=== PATIENT | female | born 1935 | race Caucasian/White ===

== ENCOUNTER 2017-02-01 14:55 | Outpatient (POV) | payer MEDICARE, SELFPAY | END 2017-02-01 17:19 | disposition home or self-care (01) | PROVIDERS: Visit Provider Podiatrist | DX: E11.8 Type 2 diabetes mellitus with unspecified complications (principal); N18.9 Chronic kidney disease, unspecified; L60.1 Onycholysis | CPT/HCPCS: 99212; G0127 ==

== ENCOUNTER → 2017-04-09 10:36 | Outpatient (POV) | payer MEDICARE, SELFPAY | PROVIDERS: Visit Provider Podiatrist | DX: Z00.00 Encounter for general adult medical examination without abnormal findings (principal) ==

== ENCOUNTER → 2017-07-02 08:51 | Outpatient (CLI) | payer MEDICARE, MEDICAID, SELFPAY ==
--- NOTE | 2017-07-02 08:52 | FL_ITS ---
EXAM: Barium swallow/esophagram. INDICATION: Dysphasia ITS.REASON: swallowing difficulty ORDERING PHYSICIAN: Chris House MD PATIENT AGE: 81 years TECHNIQUE: In the upright position the patient was observed to swallow barium in both the AP and lateral view. The cervical esophagus was examined under fluoroscopy with images obtained. The patient was then placed prone in the right anterior oblique position and was observed to swallow barium with Valsalva technique . FLUOROSCOPY TIME: 1 minute FINDINGS: Surgical clips are present in the left neck. The cervical esophagus is midline. There is persistent spasm of the cricopharyngeus muscle. There is a small sliding hiatal hernia with mild spasm of the distal esophagus which did not persist during the exam. There are degenerative changes in the cervical spine. IMPRESSION: 1. Persistent spasm of the cricopharyngeus muscle. 2. Small sliding hiatal
== END ==
PROVIDERS: Family Provider Internal Medicine; PCP Internal Medicine; Visit Provider Otolaryngology
DX: R13.10 Dysphagia, unspecified (principal)
CPT/HCPCS: 74220

== ENCOUNTER → 2017-12-13 13:02 | Outpatient (POV) | payer MEDICARE, MEDICAID, SELFPAY | PROVIDERS: Visit Provider Nurse Practitioner Acute Care | DX: Z00.00 Encounter for general adult medical examination without abnormal findings (principal) ==

== ENCOUNTER → 2017-12-20 15:11 | Outpatient (CLI) | payer MEDICARE, MEDICAID, SELFPAY ==
--- NOTE | 2017-12-20 15:23 | XR_ITS ---
XR chest 2V HISTORY: +PPD ITS.REASON: + PPD ORDERING PHYSICIAN: Ana Rosa Santana PATIENT AGE: 82 years COMPARISON: 07/14/2017 FINDINGS: There is myocardial megaly without failure. No lobar consolidation or collapse is evident. There is a rounded density in the infrahilar region on the right at 2.5 cm and may be due to summation density of the overlying vessels as there is some mild patient rotation. Calcified lymph node is also a consideration. Coronary artery calcifications are present. No cavitating lesions are apparent. No radiographic evidence of active granulomatous process. There is mild kyphosis of the thoracic spine. IMPRESSION: No acute finding.
== END ==
PROVIDERS: PCP Internal Medicine; Visit Provider Physician Assistant Medical
DX: Z11.1 Encounter for screening for respiratory tuberculosis (principal)
CPT/HCPCS: 71046

== ENCOUNTER → 2018-06-28 10:03 | Outpatient (CLI) | payer MEDICARE, MEDICAID, SELFPAY ==
[2018-06-28 10:39] LABS: Alanine Aminotransferase 21 U/L (12-78); Albumin Level 3.2 gm/dL (3.4-5.0); Alkaline Phosphatase 96 U/L (46-116); Amylase 42 U/L (25-115); Anion Gap 10.9 mEq/L (5-15); Aspartate Amino Transferase 12 U/L (15-37); Bilirubin,Total 0.3 mg/dL (0.2-1.0); Blood Urea Nitrogen 38 mg/dL (7-18); Calcium 9.7 mg/dL (8.5-10.1); Carbon Dioxide 35 mmol/L (21.0-32.0); Chloride 100 mmol/L (98-107); Estimated Glomerular Filt Rate 6 ml/min (>60); GFR (African American) 7 ML/MIN (>60); Globulin 3.2 gm/dl (1.3-3.2); Glucose 185 mg/dL (74-106); Potassium 3.9 mmoL/L (3.5-5.1); Sodium 142 mmol/L (136-145); Total Protein,Serum 6.4 gm/dL (6.4-8.2)
[2018-06-28 10:41] LABS: Basophils % 0.3 % (0.1-2.0); Eosinophils # 0.1 K/mm3 (0.0-0.4); Eosinophils % 1.6 % (0.1-12.0); Hematocrit 32.6 % (37.0-47.0); Hemoglobin 10.2 g/dL (12.2-16.2); Lymphocytes # 0.6 K/mm3 (0.7-4.5); Lymphocytes % 8.8 % (10-50); Mean Corpuscular HGB Conc 31.3 g/dL (31.8-35.4); Mean Corpuscular Volume 92.7 fl (81-99); Mean Platelet Volume 7.6 fl (7.4-10.4); Monocytes # 0.5 K/mm3 (0.1-1.0); Monocytes % 7.9 % (1.7-9.3); Neutrophils # 5.5 K/mm3 (1.8-7.8); Neutrophils % 81.3 % (37.0-80.0); Platelet Count 229 K/mm3 (142-424); Red Blood Count 3.51 M/mm3 (4.20-5.40); Red Cell Distribution Width 18.5 % (11.5-17.5); White Blood Count 6.7 K/mm3 (4.8-10.8)
[2018-06-28 10:42] LABS: Creatinine,Serum 6.56 mg/dL (0.55-1.02)
== END ==
PROVIDERS: Visit Provider Internal Medicine
DX: R10.13 Epigastric pain (principal); R11.2 Nausea with vomiting, unspecified; E11.22 Type 2 diabetes mellitus with diabetic chronic kidney disease; Z79.84 Long term (current) use of oral hypoglycemic drugs
CPT/HCPCS: 36415; 80053; 82150; 85025

== ENCOUNTER 2018-08-23 15:04 | Emergency (ER) | payer MEDICARE, MEDICAID, SELFPAY ==
[2018-08-23 15:05] VITALS: BP 179/71; PULSE 74; RESP 18; TEMP 36.8; O2SAT 98; BMI 22.6
--- NOTE | 2018-08-23 15:13 | XR_ITS ---
XR chest 2V HISTORY: ITS.REASON: Chest pain ORDERING PHYSICIAN: Sam Slater MD PATIENT AGE: 82 years COMPARISON: 05/09/2018. FINDINGS: The cardiomediastinal silhouette and pulmonary vascularity are within normal limits. There are now some indistinct patchy densities in the lung bases bilaterally with small bilateral pleural effusions. There is no pneumothorax.. No acute bony abnormalities. IMPRESSION: Bibasilar lung densities, likely from atelectasis although mild infiltrate in the retrocardiac left lower lobe is possible. Small bilateral pleural effusions.
--- NOTE | 2018-08-23 15:16 | HMH.EDGENADL ---
ED Disposition Clinical Impression: Atypical chest pain Disposition: Home, Self-Care Condition on Discharge: Good Instructions: DI for Atypical Chest Pain Additional Instructions: Additional instructions for CHEST PAIN: Call Dr. Kimball's office tomorrow to arrange a follow-up appointment. Return immediately if worsening chest pain, vomiting, shortness of breath, fever, coughing of blood. Make sure to go to your next dialysis appointment. Referrals: Charlie Long [Primary Care Provider] - - Critical Care Critical Care Time: No Attestation: On , the high probability of a clinically significant, sudden or life threatening deterioration of the following system(s) required my full and direct attention, intervention and personal management. The time I documented below is in addition to time spent performing reported procedures but includes the following listed in this critical care notation. Medical Decision Making - Tereos Inquiry Pt receiving controlled substance: No Vital Signs: 08/23/18 15:05 08/23/18 15:53 08/23/18 16:00 Temperature 98.3 F Temperature Source Oral Pulse Rate [Right Brachial] 74 65 63 Respiratory Rate 18 18 20 Blood Pressure [Right Arm] 179/71 H 191/68 H 172/74 H Blood Pressure Mean [Right Arm] 107 109 106 Blood Pressure Source [Right Arm] Automatic Cuff Automatic Cuff Automatic Cuff Blood Pressure Position [Right Arm] Sitting Sitting Sitting 02 Sat by Pulse Oximetry 98 99 96 Oxygen Delivery Method Nasal Cannula Room Air Oxygen Flow Rate (LPM) 2 08/23/18 16:12 08/23/18 17:30 Temperature Temperature Source Pulse Rate [Right Brachial] 62 62 Respiratory Rate 16 16 Blood Pressure [Right Arm] 164/55 H 180/61 H Blood Pressure Mean [Right Arm] 91 100 Blood Pressure Source [Right Arm] Blood Pressure Position [Right Arm] 02 Sat by Pulse Oximetry 97 97 Oxygen Delivery Method Nasal Cannula Oxygen Flow Rate (LPM) 2 - Lab Data Lab Results 08/23/18 15:07: WBC 5.2, RBC 4.27, Hgb 12.1 L, Hct 41.1, MCV 96.3, MCH 28.5, MCHC 29.6 L, RDW 18.0 H, Plt Count 249, MPV 8.3, Neut % (Auto) 62.7, Lymph % (Auto) 25.5, [place] % (Auto) 8.6, Eos % (Auto) 2.4, Baso % (Auto) 0.7, Neut # (Auto) 3.3, Lymph # (Auto) 1.3, [place] # (Auto) 0.4, Eos # (Auto) 0.1, Baso # (Auto) 0.0 08/23/18 15:07: Sodium 141, Potassium 5.1, Chloride 101, Carbon Dioxide 29, Anion Gap 16.1 H, BUN 68 H, Creatinine 7.43 H, Estimated Creat Clear 6, Estimated GFR 5 L*, Est GFR ( Amer) 6 L*, Glucose 104, Calcium 9.4, Troponin I < 0.02 08/23/18 18:11: Troponin I < 0.02 Result diagrams: 08/23/18 15:07 08/23/18 15:07 Orders (Tests/Meds): ED MEDICATIONS Generic Name Dose Route Start Last Admin Trade Name Freq PRN Reason Stop Dose Admin Nitroglycerin 0.4 mg 08/23/18 15:13 08/23/18 16:13 Nitrostat 0.4mg Sl Tablet SL 08/24/18 15:13 0.4 mg Q5MINP PRN Administration Chest Pain ORDERS Category Date Time Status Troponin I Q3H Lab 08/23/18 21:15 Ordered ECG Request by /Nse Stat Y 08/23/18 15:13 Ordered - ECG Data Tracing #1 EKG interpreted by Sam Slater MD: Rhythm: sinus Rate: 73 [place]: Leftward Ectopy: none Conduction: normal ST Segment Changes: none T Wave Changes: none Q Waves: none No evidence of acute ischemia or injury Poor R wave progression Prior electrocardiagrams reviewed. No change from prior tracings. 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 States if her second troponin is normal she can be discharged for outpatient follow-up. General Adult HPI - General Chief complaint: Chest Pain Stated complaint: Chest pain Time Seen by Provider: 08/23/18 15:17 Mode of Arrival: Wheelchair Limitations: No Limitations Description of Symptoms (Recalled from ER Triage Doc. by RN): Chest pain - History of Present Illness HPI narrati
[2018-08-23 15:24] LABS: Basophils % 0.7 % (0.1-2.0); Eosinophils # 0.1 K/mm3 (0.0-0.4); Eosinophils % 2.4 % (0.1-12.0); Hematocrit 41.1 % (37.0-47.0); Hemoglobin 12.1 g/dL (12.2-16.2); Lymphocytes # 1.3 K/mm3 (0.7-4.5); Lymphocytes % 25.5 % (10-50); Mean Corpuscular HGB Conc 29.6 g/dL (31.8-35.4); Mean Corpuscular Hemoglobin 28.5 pg (27.0-31.2); Mean Corpuscular Volume 96.3 fl (81-99); Mean Platelet Volume 8.3 fl (7.4-10.4); Monocytes # 0.4 K/mm3 (0.1-1.0); Monocytes % 8.6 % (1.7-9.3); Neutrophils # 3.3 K/mm3 (1.8-7.8); Neutrophils % 62.7 % (37.0-80.0); Platelet Count 249 K/mm3 (142-424); Red Blood Count 4.27 M/mm3 (4.20-5.40); White Blood Count 5.2 K/mm3 (4.8-10.8)
[2018-08-23 15:35] LABS: Anion Gap 16.1 mEq/L (5-15); Blood Urea Nitrogen 68 mg/dL (7-18); Calcium 9.4 mg/dL (8.5-10.1); Carbon Dioxide 29 mmol/L (21.0-32.0); Chloride 101 mmol/L (98-107); Creatinine Clearance Estimated 6 mL/min (50-200); Estimated Glomerular Filt Rate 5 ml/min (>60); GFR (African American) 6 ML/MIN (>60); Glucose 104 mg/dL (74-106); Potassium 5.1 mmoL/L (3.5-5.1); Sodium 141 mmol/L (136-145); Troponin I < 0.02 ng/ml (0.00-0.06)
[2018-08-23 15:37] LABS: Creatinine,Serum 7.43 mg/dL (0.55-1.02)
[2018-08-23 15:53] VITALS: BP 191/68; PULSE 65; RESP 18; O2SAT 99
[2018-08-23 16:00] VITALS: BP 172/74; PULSE 63; RESP 20; O2SAT 96
[2018-08-23 16:12] VITALS: BP 164/55; PULSE 62; RESP 16; O2SAT 97
--- NOTE | 2018-08-23 16:26 | PC.NURSE ---
PT states her pain is at 3
--- NOTE | 2018-08-23 16:38 | PC.NURSE ---
calling jaun holland for dr ocffey at this time
--- NOTE | 2018-08-23 16:40 | PC.NURSE ---
dr coffey to return call
[2018-08-23 17:30] VITALS: BP 180/61; PULSE 62; RESP 16; O2SAT 97
[2018-08-23 18:54] LABS: Troponin I < 0.02 ng/ml (0.00-0.06)
[2018-08-23 19:22] VITALS: BP 157/69; PULSE 62; RESP 14; TEMP 37; O2SAT 94
== END 2018-08-23 19:23 | disposition home or self-care (01) ==
PROVIDERS: Emergency Provider Emergency Medicine; PCP Internal Medicine
DX: R07.89 Other chest pain (principal); I10 Essential (primary) hypertension; Z99.2 Dependence on renal dialysis; J45.909 Unspecified asthma, uncomplicated; J44.9 Chronic obstructive pulmonary disease, unspecified; E11.9 Type 2 diabetes mellitus without complications; Z87.891 Personal history of nicotine dependence
CPT/HCPCS: 36415; 71046; 80048; 84484; 85025; 93005; 99284

== ENCOUNTER → 2018-08-29 13:13 | Outpatient (POV) | payer MEDICARE, MEDICAID, SELFPAY | PROVIDERS: PCP Internal Medicine; Visit Provider Nurse Practitioner Family | DX: Z00.00 Encounter for general adult medical examination without abnormal findings (principal) ==

== ENCOUNTER → 2018-08-31 14:29 | Outpatient (CLI) | payer MEDICARE, MEDICAID, SELFPAY ==
--- NOTE | 2018-08-31 14:34 | XR_ITS ---
XR chest 2V HISTORY: ITS.REASON: SOA, WEAKNESS, CP ORDERING PHYSICIAN: Charlie Long PATIENT AGE: 82 years COMPARISON: 08/23/2018 FINDINGS: Unremarkable cardiovascular structures. There remains patchy density in both lung bases slightly improved on the right. Unchanged on the left. There are small bilateral pleural effusions. There is a faint opacity in the left perihilar region measuring approximately 16 mm and may be due to an area of patchy infiltrate. Consider follow-up as developing nodule is an additional consideration. There are degenerative changes in the thoracic spine. Coronary artery calcifications are noted. IMPRESSION: Small bilateral effusions with bibasilar airspace disease slightly on the right and unchanged on the left with an additional patchy density in the left midlung for which follow-up is recommended
== END ==
PROVIDERS: PCP Internal Medicine; Visit Provider Internal Medicine
DX: R07.9 Chest pain, unspecified (principal); R06.02 Shortness of breath; R53.1 Weakness
CPT/HCPCS: 71046

== ENCOUNTER → 2018-09-02 12:56 | Outpatient (CLI) | payer MEDICARE, MEDICAID, SELFPAY ==
--- NOTE | 2018-09-02 13:00 | CA_ITS ---
PROCEDURE: 2-D M-mode and color Doppler study INDICATIONS FOR THE TEST: Chest pain COPDX Heart Murmur Tobacco Smoking Palpitations Fatigue Syncope EdemaX Hypertension Diabetes MellitusX Rheumatic Fever SOBXDOEXObesity Hyperlipidemia Family History HD Additional History PATIENT INFORMATION HEIGHT: 64 WEIGHT:131 GENDER: Female B/P:167/50 2-D/M-MODE INTERPRETATION: 2-D MEASUREMENTS OBSERVED VALUES IN CMS Right Ventricular Dimension (RVDd) 2.7 Interventricular Septum (Thickness)(IVsd) .9 Left Ventricular Internal Dimensions(LVIDd) 4.9 Left Ventricular Posterior Wall (Thickness)(LVPWd) 1.1 Aortic Root 2.8 Aortic Cusp Separation 1.5 Left Atrial Dimensions (LAD) 3.9 2D 1. Left atrium is mildly enlarged, left ventricle is normal size, mild qualitative concentric left ventricular hypertrophy, visually estimated ejection fraction 55% with no regional wall motion abnormality. There is abnormal septal motion. 2. Right atrium and right ventricle are moderately enlarged, contractility of the right ventricle is mildly reduced. 3. The aortic valve is minimally thickened and fibrosed. 4. The mitral and tricuspid valve leaflets are minimally thickened 5. The pulmonic valve is poorly visualized. 6. No significant pericardial effusion noted. DOPPLER INTERROGATION: Doppler interrogation of the aortic, mitral and tricuspid valvular presence of mild mitral and moderate to severe tricuspid regurgitation, calculated right ventricular systolic pressure is 106 mmHg consistent with severe pulmonary hypertension. Grade 2 diastolic dysfunction seen with tissue Doppler evidence of raised left atrial pressure. Inferior vena cava is not well visualized. CONCLUSION: 1. Biatrial enlargement, normal left ventricular size, mild concentric left ventricular hypertrophy, visually estimated ejection fraction of 55%, there is abnormal septal motion. Grade 2 diastolic dysfunction seen with tissue Doppler evidence of raised left atrial pressure. 2. Moderately enlarged right ventricle with mild reduced contractility. 3. Mild mitral and moderate to severe tricuspid regurgitation, calculated right ventricular systolic pressure is 106 mmHg consistent with severe pulmonary hypertension. Inferior vena cava is not well visualized.
== END ==
PROVIDERS: PCP Internal Medicine; Visit Provider Internal Medicine
DX: I25.10 Atherosclerotic heart disease of native coronary artery without angina pectoris (principal); I50.9 Heart failure, unspecified; I10 Essential (primary) hypertension
CPT/HCPCS: 93306

== ENCOUNTER → 2018-10-18 15:14 | Outpatient (CLI) | payer MEDICARE, MEDICAID, SELFPAY ==
[2018-10-18 15:24] LABS: Basophils % 0.5 % (0.1-2.0); Eosinophils # 0.1 K/mm3 (0.0-0.4); Eosinophils % 2.9 % (0.1-12.0); Hematocrit 33.3 % (37.0-47.0); Hemoglobin 10.6 g/dL (12.2-16.2); Lymphocytes # 0.7 K/mm3 (0.7-4.5); Lymphocytes % 16.3 % (10-50); Mean Corpuscular HGB Conc 31.8 g/dL (31.8-35.4); Mean Corpuscular Hemoglobin 28.1 pg (27.0-31.2); Mean Corpuscular Volume 88.3 fl (81-99); Monocytes # 0.4 K/mm3 (0.1-1.0); Monocytes % 9.1 % (1.7-9.3); Neutrophils % 71.2 % (37.0-80.0); Platelet Count 166 K/mm3 (142-424); Red Blood Count 3.78 M/mm3 (4.20-5.40); Red Cell Distribution Width 18.2 % (11.5-17.5); White Blood Count 4.2 K/mm3 (4.8-10.8)
== END ==
PROVIDERS: PCP Internal Medicine; Visit Provider Internal Medicine
DX: R19.7 Diarrhea, unspecified (principal)
CPT/HCPCS: 85025

== ENCOUNTER 2019-07-25 17:11 | Emergency (ER) | payer MEDICARE, OTHER, SELFPAY ==
[2019-07-25 17:04] VITALS: BP 160/85; PULSE 87; RESP 20; TEMP 37.4; O2SAT 93; BMI 24.0
[2019-07-25 17:17] VITALS: BMI 24.0
--- NOTE | 2019-07-25 17:17 | ECG_ITS ---
APPROVED REPORT Exam: Resting ECG HR:83 bpm ECG Measurements Heart Rate 83 AXES NH 156 P 64 QRSd 84 QRS -20 QT 380 T 82 QTc 446 <Conclusion> Sinus rhythm with premature atrial complexes Incomplete RBBB lLAD Abnormal ECG Electronically signed by : Charlie Long, 07/26/2019 10:54:11
--- NOTE | 2019-07-25 17:19 | CT_ITS ---
PROCEDURE: CT HEAD/BRAIN WO CON CLINICAL INDICATION: ALTERED MENTAL STATUS Altered mental status, altered level of consciousness, confusion, disorientation following dialysis COMPARISON: HDWO CT HEAD W/O CONTRAST from 09/03/2014 TECHNIQUE: Axial images obtained. All CT scans at the facility use one or more dose reduction, viz: automated exposure control, ma/kV adjustment per patient size (including targeted exams where dose is matched to indication, i.e. head), or iterative reconstruction technique. FINDINGS: No midline shift, mass effect, intracranial hemorrhage, hydrocephalus, or extra-axial fluid collection is evident. There is generalized atrophy with hypoattenuation of the periventricular white matter consistent with microangiopathic changes. The calvarium has an unremarkable appearance. No mastoid effusion. No sinus air-fluid level. IMPRESSION: 1. No acute intracranial findings. 2. Chronic ischemic gliotic change from microvascular disease which has progressed since the previous exam Dictated by: Mamadou Larry MD 07/25/2019 18:30 Electronically signed by Mamadou Larry MD in [place] 07/25/2019 18:30
--- NOTE | 2019-07-25 17:35 | CT_ITS ---
PROCEDURE: CT CHEST WO CON CLINICAL INDICATION: fever Cough and fever COMPARISON: 06/12/2016 TECHNIQUE: Axial images obtained with sagittal and coronal reformats. All CT scans at the facility use one or more dose reduction, viz: automated exposure control, ma/kV adjustment per patient size (including targeted exams where dose is matched to indication, i.e. head), or iterative reconstruction technique. FINDINGS: HEART AND MEDIASTINAL STRUCTURES: There are coronary artery calcifications. Calcification noted of the aorta without obvious aneurysm. Small node is present in the pretracheal region at 1.5 cm. LUNGS AND PLEURAL SPACES: COPD/centrilobular emphysema with scattered areas of scarring. There is dense consolidation in the right middle lobe centrally and posteriorly and laterally. Patchy areas of infiltrate are also present in the right lower lobe and to lesser degree in the lingula. There are trace bilateral effusions. BONY STRUCTURES: Degenerative changes. UPPER ABDOMEN: Extensive vascular calcification in the upper abdomen ADDITIONAL FINDINGS: No other significant abnormalities. IMPRESSION: 1. Dense right middle lobe consolidation consistent with pneumonia. 2. Patchy areas of infiltrate in the right lower lobe and lingula consistent with pneumonia. 3. Trace bilateral effusions 4. Severe coronary artery calcification Dictated by: Mamadou Larry MD 07/26/2019 10:40 Electronically signed by Mamadou Larry MD in [place] 07/26/2019 10:40
[2019-07-25 17:40] LABS: Basophils # 0.5 K/mm3 (0-0.2); Basophils % 4.4 % (0.1-2.0); Chloride 92 mmol/L (98-107); Eosinophils # 0.1 K/mm3 (0.0-0.4); Eosinophils % 0.6 % (0.1-12.0); Hematocrit 30.6 % (37.0-47.0); Hemoglobin 10.1 g/dL (12.2-16.2); Mean Corpuscular HGB Conc 33.1 g/dL (31.8-35.4); Mean Corpuscular Hemoglobin 28.3 pg (27.0-31.2); Mean Corpuscular Volume 85.4 fl (81-99); Mean Platelet Volume 7.7 fl (7.4-10.4); Monocytes # 1.1 K/mm3 (0.1-1.0); Monocytes % 9.2 % (1.7-9.3); Neutrophils # 10.1 K/mm3 (1.8-7.8); Neutrophils % 85.8 % (37.0-80.0); Platelet Count 243 K/mm3 (142-424); Potassium 3.7 mmoL/L (3.5-5.1); Red Blood Count 3.59 M/mm3 (4.20-5.40); Red Cell Distribution Width 20.4 % (11.5-17.5); Sodium 137 mmol/L (136-145); White Blood Count 11.8 K/mm3 (4.8-10.8)
[2019-07-25 17:43] LABS: Anion Gap 10.7 mEq/L (5-15); Blood Urea Nitrogen 35 mg/dl (7-17); Carbon Dioxide 38 mmol/L (22.0-30.0); Creatinine Clearance Estimated 9 mL/min (50-200); Estimated Glomerular Filt Rate 9 ml/min (>60); GFR (African American) 11 ML/MIN (>60); Glucose 134 mg/dl (74-100); MANUAL DIFFERENTIAL MANUAL DIFFERENTIAL (MANUAL DIFF)
[2019-07-25 17:55] LABS: Troponin I 0.02 ng/ml (0.00-0.034)
[2019-07-25 18:15] LABS: Coronavirus 19 IgG Antibody Negative (Negative); Coronavirus 19 IgM Antibody Negative (Negative)
--- NOTE | 2019-07-25 18:26 | PC.NURSE ---
Dr. Rico gandhi.
--- NOTE | 2019-07-25 18:34 | PC.NURSE ---
Dr. Pineda speaking with Dr. Martin
--- NOTE | 2019-07-25 18:43 | PC.NURSE ---
Placed call to [facility] for transfer.
[2019-07-25 18:47] LABS: Lymphocytes % 6 % (10-50); Monocytes % 10 % (2-9); Neutrophils % 84 % (42-76); Platelet Estimate Normal; RBC Morphology Normal; Total Cells Counted 100
--- NOTE | 2019-07-25 18:51 | HMH.EDGENADL ---
ED Disposition Clinical Impression: Right middle lobe pneumonia Disposition: Xfer Short-Term Hosp Condition on Discharge: Good Instructions: Pneumonia-Adult Additional Instructions: Dr. Agrawal is the accepting physician at [facility]. Referrals: Charlie Long [Primary Care Provider] - - Critical Care Critical Care Time: No Attestation: On 07/25/19, the high probability of a clinically significant, sudden or life threatening deterioration of the following system(s) required my full and direct attention, intervention and personal management. The time I documented below is in addition to time spent performing reported procedures but includes the following listed in this critical care notation. Medical Decision Making - Medical Records Medical records reviewed: Yes: I reviewed the patient's medical records. - Tereso Inquiry Pt receiving controlled substance: No Vital Signs: 07/25/19 17:04 Temperature 99.4 F Temperature Source Oral Pulse Rate [Right Radial] 87 Respiratory Rate 20 Blood Pressure [Right Arm] 160/85 H Blood Pressure Mean [Right Arm] 110 Blood Pressure Source [Right Arm] Automatic Cuff Blood Pressure Position [Right Arm] Sitting 02 Sat by Pulse Oximetry 93 L Oxygen Delivery Method Room Air - Lab Data Lab results reviewed: Yes: I reviewed the patient's lab results. Lab Results 07/25/19 17:05: WBC 11.8 H, RBC 3.59 L, Hgb 10.1 L, Hct 30.6 L, MCV 85.4, MCH 28.3, MCHC 33.1, RDW 20.4 H, Plt Count 243, MPV 7.7, Neut % (Auto) 85.8 H, Lymph % (Auto) 0.0 L, [place] % (Auto) 9.2, Eos % (Auto) 0.6, Baso % (Auto) 4.4 H, Neut # (Auto) 10.1 H, Lymph # (Auto) 0.0 L, [place] # (Auto) 1.1 H, Eos # (Auto) 0.1, Baso # (Auto) 0.5 H, Total Counted 100, Neutrophils % (Manual) 84 H, Lymphocytes % (Manual) 6 L, Monocytes % (Manual) 10 H, Platelet Estimate Normal, RBC Morphology Normal 07/25/19 17:05: Sodium 137, Potassium 3.7, Chloride 92 L, Carbon Dioxide 38 H, Anion Gap 10.7, BUN 35 H, Creatinine 4.50 H, Estimated Creat Clear 9, Estimated GFR 9 L*, Est GFR ( Amer) 11 L*, Glucose 134 H, Calcium 9.0, Troponin I 0.02 07/25/19 17:05: Lactate 2.0 07/25/19 17:05: SARS-CoV-2 IgG Ab (Rapid) Negative, SARS-CoV-2 IgM Ab (Rapid) Negative Result diagrams: 07/25/19 17:05 07/25/19 17:05 Orders (Tests/Meds): ORDERS Category Date Time Status CT chest wo con Stat Cat Scan 07/25/19 17:35 Taken Troponin I Q3H Lab 07/25/19 20:30 Ordered Troponin I Q3H Lab 07/25/19 23:30 Ordered Urinalysis-Acute [Urinalysis and Microscopic] Stat Lab 07/25/19 17:18 Ordered Blood Culture Stat Micro 07/25/19 17:18 Received - CT Data CT Scan: Chest Time Received: 19:[address] Reviewed: Yes: I have viewed the radiologist's interpretation Preliminary Findings: Abnormal (Developing right middle lobe pneumonia) General Adult HPI - General Chief complaint: Weakness Stated complaint: weakness Time Seen by Provider: 07/25/19 18:50 Mode of Arrival: EMS Source of Information: Patient Limitations: No Limitations Description of Symptoms (Recalled from ER Triage Doc. by RN): EMS were called to pt home, pt was being transported home by [employer] transport bus from dialysis. Transport bus staff stated pt was not acting like herself, pt would get up out of her chair to use her walker to, when pt would attempt to get up she would sit back down. EMS states pt wouldn't or was unable to answer their questions (EMS states they were unsure of which one). EMS states pt was 86% on RA, placed pt on 2L per [place]. FSBS 148 per EMS. Pt is having generalized weakness. EMS states temperature was 100.4 orally - History of Present Illness HPI narrative: 83-year-old female presents the ED with acute alteration in mental status. Apparently she had just left dialysis and when she was on the transport to get back home the school transportation director did notice that she was not herself. And called 911 when EMS got there the the found the patient to be altered and also she had a
--- NOTE | 2019-07-25 18:53 | PC.NURSE ---
on with [facility]
--- NOTE | 2019-07-25 18:58 | PC.NURSE ---
PT HAS BEEN ACCEPTED AT [facility]
[2019-07-25 19:38] VITALS: BP 152/60; PULSE 90; RESP 18; O2SAT 91
[2019-07-25 20:01] VITALS: BP 157/89; PULSE 82; RESP 18; TEMP 36.6; O2SAT 97
== END 2019-07-25 20:19 | disposition short-term general hospital (02) ==
PROVIDERS: Emergency Provider Family Medicine; PCP Internal Medicine
DX: J18.1 Lobar pneumonia, unspecified organism (principal); I25.10 Atherosclerotic heart disease of native coronary artery without angina pectoris; I10 Essential (primary) hypertension; E11.9 Type 2 diabetes mellitus without complications; J44.9 Chronic obstructive pulmonary disease, unspecified; Z79.899 Other long term (current) drug therapy; Z88.8 Allergy status to other drugs, medicaments and biological substances
CPT/HCPCS: 70450; 71250; 80048; 83605; 84484; 85007; 85025; 86328; 87040; 93005; 96365; 96367; 99284; 99285

== ENCOUNTER 2019-08-14 17:00 | Emergency (ER) | payer MEDICARE, OTHER, SELFPAY ==
--- NOTE | 2019-08-14 17:00 | PC.NURSE ---
pt arrives per squad cardiac arrest pt resident [facility] squad reports pt unwitnessed arrest found by staff unresponsive cpr started at approx 1636. 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
--- NOTE | 2019-08-14 17:01 | PC.NURSE ---
pt pronounced by dr tierney
[2019-08-14 17:04] VITALS: BMI 24.7
--- NOTE | 2019-08-14 17:09 | HMH.EDGENADL ---
ED Disposition Clinical Impression: Cardiac arrest Disposition: Condition on Discharge: - Critical Care Critical Care Time: No Attestation: On , the high probability of a clinically significant, sudden or life threatening deterioration of the following system(s) required my full and direct attention, intervention and personal management. The time I documented below is in addition to time spent performing reported procedures but includes the following listed in this critical care notation. Medical Decision Making - Tereso Inquiry Pt receiving controlled substance: No Medical Decision Narrative: The patient has been in asystole for at least 18 minutes documented and remains in asystole after CPR and ACLS medications. I do not feel further efforts at resuscitation were warranted. She was pronounced at 5:02 PM. 5:24 PM: Patient's [id number] present. I spoke with her. General Adult HPI - General Chief complaint: Cardiac Arrest/CPR Stated complaint: code blue Time Seen by Provider: 08/14/19 17:00 - History of Present Illness HPI narrative: Brought in by ambulance in cardiac arrest. She is a resident of [facility]. Unwitnessed arrest, found unresponsive and in cardiac arrest in her room. On ambulance arrival, she was found to be in asystole. EMS reports that the patient has had approximately 18 minutes of CPR. They placed an LMA airway and she was given 3 rounds of epinephrine. She has remained in asystole during the entire transport. - Related Data Home Medications Medication Instructions Recorded Confirmed B complex-vitamin C-folic acid 0.8 0.8 mg PO ONCE 90 Days #90 04/05/17 07/13/19 mg tablet alprazolam 1 mg tablet 1 mg PO TID 30 Days 04/05/17 07/13/19 clopidogrel 75 mg tablet 75 mg PO DAILY 90 Days #04/05/17 07/13/19 doxazosin 2 mg tablet 2 mg PO HS 90 Days #04/05/17 07/13/19 folic acid 1 mg tablet 1 mg PO DAILY 90 Days #04/05/17 07/13/19 furosemide 80 mg tablet 80 mg PO BID 30 Days 04/05/17 07/13/19 glimepiride 2 mg tablet 2 mg PO DAILY 30 Days 04/05/17 07/13/19 hydralazine 50 mg tablet 50 mg PO DAILY 90 Days 04/05/17 07/13/19 hydrocodone 10 mg-acetaminophen 10 mg PO Q6 30 Days 04/05/17 07/13/19 325 mg tablet isosorbide mononitrate 60 mg 60 mg PO ONCE 90 Days 04/05/17 07/13/19 tablet,extended release 24 hr nebivolol 5 mg tablet 5 mg PO ONCE 90 Days 04/05/17 07/13/19 ranitidine HCl 150 mg tablet 150 mg PO ONCE 90 Days #180 04/05/17 07/13/19 irbesartan 300 mg tablet 300 mg PO DAILY 90 Days tab 11/15/17 07/13/19 metolazone 5 mg tablet 10 mg PO DAILY 90 Days tab 01/17/18 07/13/19 albuterol sulfate 90 mcg/actuation 1 puff INHALATION Q4H PRN 25 Days 04/11/18 07/13/19 aerosol inhaler g atorvastatin 40 mg tablet 40 mg PO DAILY 04/11/18 07/13/19 pantoprazole 40 mg tablet,delayed 40 mg PO DAILY 90 Days tab 04/11/18 07/13/19 release Calcium Acetate [Phoslo 667mg 1 tab PO DAILY 08/23/18 07/13/19 capsule] Promethazine HCl [Phenergan 25mg 25 mg PO Q6H PRN 08/23/18 07/13/19 tab] ondansetron HCL [Ondansetron 4mg 4 mg SL DAILY 08/23/18 07/13/19 Tablet] polyethylene glycoL 3350 [Miralax 17 gm PO DAILY 08/23/18 07/13/19 17gm Packet] methylcellulose (with sugar) 1 tbsp PO #850 g 08/29/18 07/13/19 metoclopramide HCl 5 mg tablet 5 mg PO BID tab 08/29/18 07/13/19 Allergies Allergy/AdvReac Type Severity Reaction Status Date / Time aspirin [ASPIRIN] Allergy Severe S-DIFF. Verified 07/13/19 14:58 BREATHING celecoxib [From CELEBREX] Allergy Unknown Verified 07/13/19 14:58 clopidogrel [From PLAVIX] Allergy Unknown Verified 07/13/19 14:58 fomepizole [FOMEPIZOLE] Allergy Unknown Verified 07/13/19 14:58 ibuprofen [From MOTRIN] Allergy Unknown Verified 07/13/19 14:58 tuberculin, purified protein Allergy Unknown Verified 07/13/19 14:58 deriva [TUBERCULIN,PURIF.PROT.DERIV.] AMTIPYINE Allergy Unknown Uncoded 04/11/18 15:03
--- NOTE | 2019-08-14 17:22 | PC.NURSE ---
dr tierney speaking with family
--- NOTE | 2019-08-14 17:30 | PC.NURSE ---
[facility] called informed of pt's . pt r/o for donation
--- NOTE | 2019-08-14 17:36 | PC.NURSE ---
dr tierney spoke with pt's emergency contact Paresh Mir. she states she has been trying to contact pt's daughter but has been unable to reach her.
--- NOTE | 2019-08-14 17:49 | PC.NURSE ---
Micky Jackson methods and procedures analyst notified.
--- NOTE | 2019-08-14 17:56 | PC.NURSE ---
Paresh Mir spoke with pt's daughter. Ms Mir at pt's bedside.
--- NOTE | 2019-08-14 18:00 | PC.NURSE ---
family at bedside
--- NOTE | 2019-08-14 19:47 | PC.NURSE ---
updated [facility] status.
--- NOTE | 2019-08-14 21:25 | PC.NURSE ---
body released to [facility]
[2019-08-14 21:30] VITALS: BP 0/0; PULSE 0; RESP 0; TEMP -17.7; TEMP 0; O2SAT 0
== END 2019-08-14 21:33 | disposition expired ==
PROVIDERS: Emergency Provider Emergency Medicine; PCP Internal Medicine
DX: I46.9 Cardiac arrest, cause unspecified (principal); I25.10 Atherosclerotic heart disease of native coronary artery without angina pectoris; E11.9 Type 2 diabetes mellitus without complications; J44.9 Chronic obstructive pulmonary disease, unspecified; I10 Essential (primary) hypertension; N28.9 Disorder of kidney and ureter, unspecified; Z88.8 Allergy status to other drugs, medicaments and biological substances; Z79.899 Other long term (current) drug therapy
CPT/HCPCS: 99282